=== PATIENT | male | born 1930 | race Caucasian/White ===

== ENCOUNTER 2016-09-04 22:53 | Inpatient (IN) | payer OTHER ==
[~2016-09-04] VITALS: Ht 152.4 cm; Wt 58.1 kg
[2016-09-04 23:24] LABS: BASOPHILS % (AUTO) 1.1 % (0.0-2.0); DIFF TOTAL % 100 %; EOSINOPHILS # (AUTO) 0.3 /CMM (0.0-0.7); EOSINOPHILS % (AUTO) 6.5 % (0.0-6.0); HEMATOCRIT 36 % (39-51); LYMPHOCYTES # (AUTO) 1.1 /CMM (0.8-4.8); LYMPHOCYTES % (AUTO) 26.3 % (20.0-44.0); MEAN CORPUSCULAR HEMOGLOBIN 30 PG (26.0-33.0); MEAN CORPUSCULAR HGB CONC 33 g/dl (31.0-36.0); MEAN CORPUSCULAR VOLUME 91 fL (80-96); MONOCYTES # (AUTO) 0.6 /CMM (0.1-1.30); MONOCYTES % (AUTO) 13.9 % (2.0-12.0); NEUTROPHILS # (AUTO) 2.1 /CMM (1.8-8.9); NEUTROPHILS % (AUTO) 52.2 % (43.0-81.0); PLATELET COUNT (AUTO) 219 /CMM (150-450); RED BLOOD CELL COUNT(AUTO) 3.99 MIL/uL (4.5-6.0); WHITE BLOOD COUNT (AUTO) 4.1 K/uL (4.3-11.0)
[2016-09-04 23:32] LABS: ANION GAP 14 (5-14); CALCIUM, SERUM 8.5 mg/dL (8.5-10.1); CARBON DIOXIDE 28 mmol/L (21-32); CHLORIDE 102 mmol/L (98-107); GLUCOSE 119 mg/dL (74-106); POTASSIUM 4.6 mmol/L (3.5-5.1); SODIUM SERUM 139 mmol/L (136-145); UREA NITROGEN, BLOOD 26 mg/dL (7-18)
[2016-09-04 23:40] LABS: ALANINE AMINOTRANSFERASE 29 U/L (12-78); ALBUMIN 4.2 g/dL (3.4-5.0); ASPARTATE AMINOTRANSFERASE 28 U/L (15-37); BILIRUBIN,DIRECT 0.1 mg/dL (0.0-0.2); BILIRUBIN,TOTAL 0.3 mg/dL (0.2-1.0); INDIRECT BILIRUBIN 0.2 mg/dL (0.0-1.1); TOTAL PROTEIN, SERUM 7.5 g/dL (6.4-8.2); TROPONIN I < 0.017 ng/mL (0.00-0.056)
[2016-09-04 23:54] LABS: INR 0.99 (0.87-1.13); PROTHROMBIN TIME 10.7 SECS (9.5-12.7)
[2016-09-05] VITALS (26 sets, daily range): BP systolic 126–181; BP diastolic 16–103
[2016-09-05] MEDS ORDERED: Z GUARD REMEDY 2 OZ OINT TP PRN (02:00)
[2016-09-05] MEDS ORDERED: MAG HYDROX/AL HYDROX/SIMETH 30 ML UDC PO PRN (02:00)
[2016-09-05] MEDS ORDERED: MORPHINE SULFATE INJ 2 MG/ML DISP.SYRIN IV PRN (02:00)
[2016-09-05] MEDS ORDERED: ZOLPIDEM TARTRATE 5 MG TABLET PO PRN (02:00)
[2016-09-05] MEDS ORDERED: ONDANSETRON HCL/PF 4 MG/2 ML VIAL IVP PRN (02:00)
[2016-09-05] MEDS ORDERED: MAGNESIUM HYDROXIDE 30 ML UDC PO PRN (02:00)
[2016-09-05] MEDS ORDERED: ACETAMINOPHEN 325 MG TABLET PO PRN (02:00)
[2016-09-05] MEDS ORDERED: ASPI-605 PO (02:22)
[2016-09-05] MEDS ORDERED: METO50TA3 PO (02:23)
[2016-09-05] MEDS ORDERED: CLOP75TA2 PO (02:23)
[2016-09-05] MEDS ORDERED: DOXA4TAB2 PO (02:23)
[2016-09-05] MEDS ORDERED: ATOR80TA PO (02:23)
[2016-09-05] MEDS ORDERED: HYDR-4075 PO (02:23)
[2016-09-05] MEDS ORDERED: IV NS 0.9% 1,000 ML ONE (02:34)
[2016-09-05] MEDS ORDERED: IV SET PRIMARY PUMP SET 1 EA INFUS.SET MC ONE (02:35)
[2016-09-05] MEDS: IV NS 0.9% 1,000 ML IV PRN ×2 (02:41→15:26)
[2016-09-05 05:12] LABS: BASOPHILS % (AUTO) 0.5 % (0.0-2.0); DIFF TOTAL % 100 %; EOSINOPHILS # (AUTO) 0.1 /CMM (0.0-0.7); EOSINOPHILS % (AUTO) 0.9 % (0.0-6.0); HEMATOCRIT 34 % (39-51); HEMOGLOBIN 11.7 g/dL (13.5-17.5); LYMPHOCYTES # (AUTO) 0.5 /CMM (0.8-4.8); LYMPHOCYTES % (AUTO) 8.1 % (20.0-44.0); MEAN CORPUSCULAR HEMOGLOBIN 31 PG (26.0-33.0); MEAN CORPUSCULAR HGB CONC 34 g/dl (31.0-36.0); MEAN CORPUSCULAR VOLUME 90 fL (80-96); MONOCYTES # (AUTO) 0.6 /CMM (0.1-1.30); MONOCYTES % (AUTO) 10.3 % (2.0-12.0); NEUTROPHILS % (AUTO) 80.2 % (43.0-81.0); PLATELET COUNT (AUTO) 200 /CMM (150-450); RED BLOOD CELL COUNT(AUTO) 3.82 MIL/uL (4.5-6.0); WHITE BLOOD COUNT (AUTO) 6.3 K/uL (4.3-11.0)
[2016-09-05 05:31] LABS: TROPONIN I 0.026 ng/mL (0.00-0.056)
[2016-09-05 05:34] LABS: ALBUMIN 3.7 g/dL (3.4-5.0); BILIRUBIN,TOTAL 0.3 mg/dL (0.2-1.0); CALCIUM, SERUM 8.2 mg/dL (8.5-10.1); POTASSIUM 5.1 mmol/L (3.5-5.1); TOTAL PROTEIN, SERUM 6.8 g/dL (6.4-8.2)
[2016-09-05 05:41] LABS: THYROID STIMULATING HORMONE 1.05 uIU/mL (0.358-3.74)
[2016-09-05] MEDS: METOPROLOL TARTRATE 50 MG TABLET PO SCH (09:00)
[2016-09-05] MEDS ORDERED: PANTOPRAZOLE 40 MG VIAL IV SCH (09:00)
[2016-09-05] MEDS: HYDROCODONE/APAP 5/325MG 1 EACH TABLET PO PRN ×2 (12:13→21:33)
[2016-09-05] MEDS ORDERED: hydrALAZINE HCL 10 MG TABLET PO SCH (17:00)
[2016-09-05] MEDS: ATORVASTATIN 40 MG TABLET PO SCH (17:03)
[2016-09-05 18:00] LABS: ADD UA MICROSCOPIC NO; KETONES,URINE NEGATIVE (NEGATIVE); LEUKOCYTE ESTERASE ,URINE NEGATIVE (NEGATIVE); PH,URINE 6.5 (5.0-8.0)
[2016-09-05 18:05] LABS: CANNABINOID, URINE NEGATIVE (NEGATIVE); PHENCYCLIDINE SCREEN,URINE NEGATIVE (NEGATIVE)
[2016-09-05] MEDS: DOXAZOSIN MESYLATE (4 MG) 4 MG TABLET PO SCH (22:27)
[2016-09-06] VITALS (27 sets, daily range): BP systolic 122–194; BP diastolic 51–91
[2016-09-06] MEDS: IV NS 0.9% 1,000 ML IV PRN (04:31)
[2016-09-06 04:37] LABS: BASOPHILS % (AUTO) 0.9 % (0.0-2.0); DIFF TOTAL % 100 %; EOSINOPHILS # (AUTO) 0.2 /CMM (0.0-0.7); HEMATOCRIT 34 % (39-51); HEMOGLOBIN 11.1 g/dL (13.5-17.5); LYMPHOCYTES # (AUTO) 0.9 /CMM (0.8-4.8); LYMPHOCYTES % (AUTO) 18.3 % (20.0-44.0); MEAN CORPUSCULAR HEMOGLOBIN 30 PG (26.0-33.0); MEAN CORPUSCULAR HGB CONC 33 g/dl (31.0-36.0); MEAN CORPUSCULAR VOLUME 91 fL (80-96); MONOCYTES # (AUTO) 0.8 /CMM (0.1-1.30); MONOCYTES % (AUTO) 15.8 % (2.0-12.0); NEUTROPHILS # (AUTO) 2.9 /CMM (1.8-8.9); PLATELET COUNT (AUTO) 180 /CMM (150-450); WHITE BLOOD COUNT (AUTO) 4.8 K/uL (4.3-11.0)
[2016-09-06 05:14] LABS: EOSINOPHILS % (MANUAL) 5 % (0-4); LYMPHOCYTES % (MANUAL) 11 % (16-48)
[2016-09-06 05:15] LABS: PLATELET ESTIMATE ADEQUATE; TROPONIN I 0.023 ng/mL (0.00-0.056)
[2016-09-06 05:16] LABS: ALBUMIN 3.3 g/dL (3.4-5.0); BILIRUBIN,TOTAL 0.5 mg/dL (0.2-1.0); CALCIUM, SERUM 7.8 mg/dL (8.5-10.1); CREATININE 0.8 mg/dL (0.6-1.3); PHOSPHORUS 3.2 mg/dL (2.5-4.9); POTASSIUM 4.5 mmol/L (3.5-5.1); TOTAL PROTEIN, SERUM 6.3 g/dL (6.4-8.2)
[2016-09-06] MEDS: METOPROLOL TARTRATE 50 MG TABLET PO SCH (08:09)
[2016-09-06] MEDS: PANTOPRAZOLE 40 MG TABLET.DR PO SCH (08:09)
[2016-09-06] MEDS: hydrALAZINE HCL 10 MG TABLET PO SCH ×3 (08:10→16:35)
[2016-09-06] MEDS ORDERED: IV SET PRIMARY PUMP SET 1 EA INFUS.SET MC ONE (13:46)
[2016-09-06] MEDS: SOD FERRIC GLUC 125 MG in IV NS 0.9% 100 ML IV SCH (13:51)
[2016-09-06] MEDS: ATORVASTATIN 40 MG TABLET PO SCH (17:10)
[2016-09-06] MEDS: HYDROCODONE/APAP 5/325MG 1 EACH TABLET PO PRN (19:00)
[2016-09-06] MEDS: DOXAZOSIN MESYLATE (4 MG) 4 MG TABLET PO SCH (21:51)
[2016-09-07] VITALS: BP 133/49
[2016-09-07 04:00] VITALS: BP_SYST 117; BP_SYST 157; BP_DIAS 52; BP_DIAS 62
[2016-09-07 08:00] VITALS: BP_SYST 158; BP_DIAS 44; BP_DIAS 50
[2016-09-07] MEDS: HYDROCODONE/APAP 5/325MG 1 EACH TABLET PO PRN (08:00)
[2016-09-07] MEDS: hydrALAZINE HCL 10 MG TABLET PO SCH ×2 (08:05→13:54)
[2016-09-07] MEDS: PANTOPRAZOLE 40 MG TABLET.DR PO SCH (08:05)
[2016-09-07] MEDS: METOPROLOL TARTRATE 50 MG TABLET PO SCH (08:54)
[2016-09-07 12:00] VITALS: BP 133/51
[2016-09-07] MEDS ORDERED: IV SET PRIMARY PUMP SET 1 EA INFUS.SET MC ONE (13:53)
[2016-09-07] MEDS: SOD FERRIC GLUC 125 MG in IV NS 0.9% 100 ML IV SCH (13:54)
[2016-09-07] MEDS ORDERED: HYDR-4075 PO (15:18)
[2016-09-07 16:00] VITALS: BP 154/65
== END 2016-09-07 16:55 | disposition home or self-care (01) | DRG 82 ==
LOC: ER 22:55 → ICU 09-05 00:52 → TELE1 09-06 18:32 → MEDSG1 09-07 10:28
PROVIDERS: ADMIT Contractor; ATTEND Contractor
DX: S06.5X9A Traumatic subdural hemorrhage with loss of consciousness of unspecified duration, initial encounter (principal); N17.0 Acute kidney failure with tubular necrosis; S22.31XA Fracture of one rib, right side, initial encounter for closed fracture; S02.19XA Other fracture of base of skull, initial encounter for closed fracture; I25.10 Atherosclerotic heart disease of native coronary artery without angina pectoris; D63.8 Anemia in other chronic diseases classified elsewhere; W19.XXXA Unspecified fall, initial encounter; Y93.9 Activity, unspecified; Y92.009 Unspecified place in unspecified non-institutional (private) residence as the place of occurrence of the external cause; Y99.9 Unspecified external cause status; R55 Syncope and collapse; E78.5 Hyperlipidemia, unspecified; F10.20 Alcohol dependence, uncomplicated; F17.210 Nicotine dependence, cigarettes, uncomplicated; I25.2 Old myocardial infarction; I48.91 Unspecified atrial fibrillation; Z86.73 Personal history of transient ischemic attack (TIA), and cerebral infarction without residual deficits; Z95.1 Presence of aortocoronary bypass graft; S06.6X9A Traumatic subarachnoid hemorrhage with loss of consciousness of unspecified duration, initial encounter; E04.2 Nontoxic multinodular goiter; E11.9 Type 2 diabetes mellitus without complications; I10 Essential (primary) hypertension; M48.02 Spinal stenosis, cervical region; N40.0 Benign prostatic hyperplasia without lower urinary tract symptoms
CPT/HCPCS: 36415; 70450-TC; 71010-TC; 72125-TC; 76536-TC; 80048-TC; 80053-TC; 80061-TC; 80076-TC; 80305; 81000-TC; 82306; 82728-TC; 82962-TC; 83540-TC; 83735-TC; 84100-TC; 84439-TC; 84443-TC; 84484-TC; 85025-TC; 85730-TC; 87081-TC; 92526; 92611-TC; 93307-TC; 93880-TC; 97001-TC; A4606; C9113; J2916; J7030; Z7610